=== PATIENT | male | born 1955 | race Caucasian/White ===

== ENCOUNTER → 2025-04-20 08:52 | Outpatient (REF) | payer OTHER, SELFPAY ==
--- NOTE | 2025-04-20 09:30 | CARDSERVLU ---
Echocardiogram with Lumason completed after protocol screening completed. Allergies verified.
Patent IV site: _Rt hand____
IV site flushed with 0.9% NaCl pre and post administration.
Diluted bolus method utilized to enhance visualization of ventricular garcia.
Total volume given: __5.0_ mL
Patient tolerated all procedures well without complications.
#22 yinka placed Rt hand. Lumason given. INT d/c'd. pressure held. No bleeding noted.
== END ==
LOC: RCS 08:52
PROVIDERS: ATTENDING PHYSICIAN Internal Medicine Cardiovascular Disease; FAMILY PHYSICIAN Family Medicine
DX: I10 Essential (primary) hypertension (principal); I45.10 Unspecified right bundle-branch block
CPT/HCPCS: 93306; Q9950

== ENCOUNTER → 2025-05-04 07:26 | Outpatient (REF) | payer OTHER, SELFPAY | LOC: HWRCS 07:26 | PROVIDERS: ATTENDING PHYSICIAN Internal Medicine Cardiovascular Disease; FAMILY PHYSICIAN Family Medicine | DX: I10 Essential (primary) hypertension (principal); I45.10 Unspecified right bundle-branch block | CPT/HCPCS: 78452; 93017; A9500; J2785 ==